=== PATIENT | male | born 1985 | race Caucasian/White ===

== ENCOUNTER 2018-06-24 12:30 | Emergency (ER) | payer OTHER ==
[~2018-06-24] VITALS: Ht 175.3 cm; Wt 69.9 kg
[2018-06-25] MEDS ORDERED: MEDROLPACK PO (03:15)
[2018-06-25] MEDS ORDERED: CIPRO500 MG PO (03:15)
== END 2018-06-25 03:24 | disposition home or self-care (01) ==
LOC: ER 12:30
DX: K62.89 Other specified diseases of anus and rectum (principal); K52.9 Noninfective gastroenteritis and colitis, unspecified